=== PATIENT | male | born 1990 | race Caucasian/White ===

== ENCOUNTER 2024-02-03 18:19 | Day surgery (SDC) | payer OTHER, SELFPAY ==
[2024-02-03] VITALS (22 sets, daily range): BP systolic 113–141; BP diastolic 67–98; PULSE 90–109; TEMP 36.7–36.9; O2SAT 90–99; BMI 32.6
--- NOTE | 2024-02-03 | HP_ITS ---
Date: 02/03/2024 CHIEF COMPLAINT: Food impaction. HISTORY OF PRESENT ILLNESS: Patient is a 33-year-old male, who was eating steak and dinner time and developed a food impaction in the lower esophagus. He was unable to swallow his saliva. He has had two previous episodes requiring EGD and removal of a food bolus in the past. Denies any history of reflux disease or any pathology found on the EGD. Does admit to not chewing his food well. PAST MEDICAL HISTORY: He has no medical problems. MEDICATIONS: He is on no prescription or [id number] medications. ALLERGIES: He has no known drug allergies. SOCIAL HISTORY: Denies any tobacco use or illicit drug use. PAST SURGICAL HISTORY: He has had no previous surgical operations. FAMILY HISTORY: No family history of esophageal or GI problems. PHYSICAL EXAM: VITAL SIGNS: He is afebrile, blood pressure 141/83. Pulse is 94 and regular. Respiratory rate is 18. O2 saturation is 96% on room air. General: In general, he is a well developed, well nourished male in no acute distress. HEENT: Normocephalic, atraumatic. Sclerae anicteric. Conjunctivae not injected. Oral mucosa is moist without lesions. Neck: Supple. There is no adenopathy, thyromegaly or JVD. Lungs: Clear bilaterally. Cardiac Exam: Regular rhythm and rate without appreciable murmurs, rubs or gallops. Abdomen: Soft, non-tender, non-distended. There are no masses, hepatosplenomegaly or hernias. No CVA tenderness. Skin: Warm and dry without lesions, rashes or ulcers. Neurologic: Non-focal, non-lateralizing. Patient is awake, alert, oriented with appropriate affect. Musculoskeletal Exam: Reveals normal muscle strength, mass and tone. ASSESSMENT: Patient was given glucagon and Ativan in the emergency room with no relief. He had a normal chest x-ray and EKG. PLAN: Indication, risks, benefits, alternatives of proceeding with EGD with removal and/or reduction of food bolus were explained extensively to the patient, including risks of bleeding, aspiration, esophageal, gastric, duodenal perforation or anesthetic complications. All of his questions were answered. Informed consent was obtained. [facility]
--- NOTE | 2024-02-03 | OP_ITS ---
OPERATION DATE: 02/03/2024 PREOPERATIVE DIAGNOSIS: Food impaction. POSTOPERATIVE DIAGNOSIS: Food impaction. PROCEDURE: EGD with removal and reduction of food bolus. SURGEON: Ludwig Mayes M.D. ANESTHESIA: General endotracheal. ESTIMATED BLOOD LOSS: Zero. INDICATIONS AND CONSENT: Patient is a 33-year-old male with a history of several previous food impactions, who was eating steak several hours earlier and developed a food impaction. He was unable to swallow his saliva or any food or drink. Indications, risks, benefits, alternatives of proceeding with EGD under general anesthesia were explained extensively to the patient, including the risks of bleeding, aspiration, esophageal/gastric/duodenal perforation or anesthetic complications. All of his questions were answered. Informed consent was obtained. PROCEDURE: Patient brought to the operating room, placed in the supine position. General anesthesia was induced. He was then placed in the left lateral decubitus position. Bite block was placed in the patient?s mouth. Scope was inserted into the oropharynx. Under direct visualization, it was advanced into the esophagus, past the cricopharyngeus, down to the lower esophagus, where a large food bolus of steak was noted. This was able to be broken up with the graspers. Several large chunk were able to be pulled out. Eventually, there did appear to be a large amount of spasm of the esophagus, particularly at the cricopharyngeus in the lower esophageal sphincter. Once the majority had been pulled out of the esophagus with the graspers, the remaining piece was able to be flushed down into the stomach. There was noted to be no narrowing or abnormalities of the esophagus itself. There was no significant hiatal hernia. There was some liquid and a small amount of food within the stomach. Upon withdrawal of the scope, mucosal surfaces were carefully examined. There was no ulceration or bleeding noted. Scope was then withdrawn. Patient tolerated procedure well, was extubated and sent to recovery room in good condition. CC: Patient?s family physician NATACHA
--- NOTE | 2024-02-03 19:18 | XR_ITS ---
The [address] [address] Patient Name: HILDA DASILVA MRN: [id number] date: 1990 Sex: M Assigned Patient Location: ER Current Patient Location: ER Accession/Order Number: [id number] Exam Date: 02/03/2024 20:04 Report Date: 02/03/2024 20:46 At the request of: TEZ MARKER Procedure: XR chest 1V XR chest 1V 02/03/2024 7:04 PM CDT: History: pre op Comparison: None. Technique: 2 view chest Findings: The cardiomediastinal silhouette is normal. The lungs are clear without infiltrate, effusion, or pneumothorax. The bones are intact. XR/XR chest 1V Impression: No acute cardiopulmonary process. Electronically authenticated by: HILDA TIPTON Date: 02/03/2024 20:46
--- NOTE | 2024-02-03 19:18 | ECG_ITS ---
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
--- NOTE | 2024-02-03 19:18 | ED.GENADUL1 ---
HPI HPI - General Adult General Chief complaint: Skin/Abscess/Foreign Body Stated complaint: Difficulty Swallowing Time Seen by Provider: 02/03/24 19:13 Source: patient Mode of arrival: walk-in History of Present Illness HPI narrative: This 33-year male presents for evaluation of a food bolus in his esophagus. He states he was eating dinner around 5 PM. He was eating steak. He states he got stuck in his esophagus. He has some mild pain in his posterior mid back area. He has not been able to tolerate his secretions since that time. He states that he has done this twice in the past. He denies any difficulty breathing. He has no chest pain or shortness of breath. Related Data Allergies Allergy/AdvReac Type Severity Reaction Status Date / Time No Known Drug Allergies Allergy Verified 02/03/24 18:39 Opioid HPI Opioid Management Most Recent Opioid Data: No Data to Display Review of Systems ROS Status of ROS 10 or more systems reviewed and unremarkable except as noted in history and below Exam Narrative Exam Narrative: Vital signs and Nursing Notes reviewed: Blood pressure is mildly elevated at 136/98 he is not hypoxic General: Awake, alert, oriented, no acute distress, speech is clear, he is spitting saliva into a cup, no respiratory distress HEENT: Normocephalic atraumatic, mucous membranes are moist and pink, eyes are clear, normal conjunctiva, vision is grossly intact, posterior pharynx is normal in appearance Neck: Supple, no meningeal signs, no anterior or posterior cervical lymphadenopathy, trachea is midline and easily mobile Chest: Lungs are clear to auscultation with good air entry, there is no wheezing rhonchi or rales appreciated no accessory muscle use, patient is speaking in complete sentences-no chest wall tenderness to palpation CVS: Regular rate and rhythm S1-S2, no murmurs rubs or gallops, pulses are brisk and equal bilaterally ABD: Soft, nondistended, nontender, no rebound guarding or rigidity, bowel sounds are normal, no pulsatile masses appreciated Extremities: Moving all extremities, no lower extremity tenderness or swelling noted, negative Homans' sign, pulses are brisk and equal bilaterally Skin: Normal in appearance without rash,pallor, petechiae or purpura Neuro: No focal deficits Constitutional Vital Signs, click to edit/add: Last Vital Signs Temp 98.5 F 02/03/24 18:36 Pulse 94 H 02/03/24 20:34 Resp 18 02/03/24 20:34 BP 141/83 02/03/24 20:34 Pulse Ox 96 02/03/24 20:34 O2 Del Method Room Air 02/03/24 18:36 Course Vital Signs Vital signs: Vital Signs Temperature 98.5 F 02/03/24 18:36 Pulse Rate 90 02/03/24 18:36 Respiratory Rate 18 02/03/24 18:36 Blood Pressure 136/98 H 02/03/24 18:36 Pulse Oximetry 99 02/03/24 18:36 Oxygen Delivery Method Room Air 02/03/24 18:36 Temperature 98.5 F 02/03/24 18:36 Pulse Rate 94 H 02/03/24 20:34 Respiratory Rate 18 02/03/24 20:34 Blood Pressure 141/83 02/03/24 20:34 Pulse Oximetry 96 02/03/24 20:34 Oxygen Delivery Method Room Air 02/03/24 18:36 Medical Decision Making MDM Narrative Medical decision making narrative: This 33-year-old male presents for evaluation of a food bolus in his esophagus. He was eating dinner around 5 PM. He states he has had food boluses stuck in his esophagus twice in the past. He has no respiratory difficulty. His lungs are clear, abdomen is soft, trachea is midline and easily mobile. EKG is normal sinus rhythm. Chest x-ray shows cardiomegaly but otherwise normal. He was medicated emergency department with Ativan and glucagon but did not have any passage of the food bolus. The case was discussed with Dr. Mayes and he will be taken to the Endo suite for further evaluation and treatment. ECG Data Attestation: I personally reviewed and interpreted this ECG as follows: (Sinus rhythm at 76 bpm, normal axis, normal intervals, no acute ST segment elevation or T wave inversion) Discharge Plan Discharge Chief Complaint: Skin/Abscess/Foreign Body Clinical Impression: Food bolus obstruction of intestine Patient Disposition: Admitted to Surgery Print Language: Danish Referrals: CADY GODWIN [Primary Care Provider] - 1 week
[2024-02-03] MEDS: LORAZEPAM 2 MG/ML VIAL 1 MG IV (19:46)
[2024-02-03] MEDS: 0.9 % SODIUM CHLORIDE 1,000 ML 1000 ML IV (19:47)
[2024-02-03] MEDS: GLUCAGON 1 MG/ML VIAL IV (20:08)
--- NOTE | 2024-02-03 20:42 | PC.NURSE ---
Pt. being seen today in the ER for a food bolus. Pt. unable to swallow but is breathing normally and talking. Pt. received Glucagon and Ativan. Pt. awaiting to get sent to surgery. This is the pts. third time having this happen to him stated by pt.
[2024-02-03] MEDS: LACTATED RINGER'S SOLUTION 1,000 ML 50 ML IV (20:49)
== END 2024-02-03 23:56 | disposition home or self-care (01) ==
LOC: ER 21:08 → SURGOUT 21:21
PROVIDERS: Emergency Provider Emergency Medicine; PCP Nurse Practitioner; Visit Provider Surgery
PROC: (CPT 00731; principal; 2024-02-03 19:50)
DX: T18.128A Food in esophagus causing other injury, initial encounter (principal); W44.F3XA Food entering into or through a natural orifice, initial encounter
CPT/HCPCS: 00731; 43247; 71045; 93005; 96374; 96375; 99285; J1094; J1610; J2704